=== PATIENT | male | born 1990 | race Two or more races ===

== ENCOUNTER → 2021-12-30 | Emergency (ER) | payer OTHER ==
[~2021-12-30] VITALS: Ht 170.2 cm; Wt 98.9 kg
[~2021-12-30] MED LIST: BACTRIM 400-801 EACH PO; BACTRIM DS TAB1 EACH PO
== END | disposition home or self-care (01) ==
LOC: ER 14:54
DX: L03.116 Cellulitis of left lower limb (principal)

== ENCOUNTER 2022-06-02 12:30 | Outpatient (CLI) | payer OTHER | END 2022-06-02 12:32 | disposition home or self-care (01) | LOC: RAD 12:30 | DX: S42.252A Displaced fracture of greater tuberosity of left humerus, initial encounter for closed fracture (principal) ==

== ENCOUNTER 2023-02-23 07:31 | Outpatient (CLI) | payer OTHER ==
[2023-02-23 08:44] LABS: PH,URINE 5.5 (5.0-8.0); URINE APPEARANCE Clear; URINE BILIRRUBIN Negative (NEGATIVE); URINE BLOOD Negative; URINE COLOR Yellow; URINE GLUCOSE Negative (NEGATIVE); URINE LEUKOCYTE Negative; URINE NITRATE Negative; URINE PROTEIN Negative (NEGATIVE); URINE UROBILINOGEN 0.2 E.U./dl
[2023-02-23 08:45] LABS: HEMATOCRIT 41.7 % (39.0-48.0); HEMOGLOBIN 14.8 g/dL (13-16.00); MEAN CELL VOLUME 87.3 fL (80.0-100.00); MEAN CORPUSCULAR HEMOGLOBIN 31.1 pg (27.00-32.0); MEAN CORPUSCULAR HGB CONC 35.6 g/dl (32.0-36.0); PLATELET COUNT 300 K/uL (150-450); RED BLOOD COUNT 4.77 M/uL (4.00-6.00); RED CELL DISTRIBUTION WIDTH 13.7 % (11.5-14.5)
[2023-02-23 09:32] LABS: URINE BACTERIA 0 uL (0.0-1933); URINE EPITHELIAL CELLS 1.3 uL (0.0-38.8)
[2023-02-23 09:38] LABS: ALBUMIN 3.8 gm/dL (3.4-5.0); BILIRUBIN TOTAL 0.48 mg/dL (0.3-1.2); CHOL HDL RATIO 3.8 (0-5.0); CREATININE SERUM 0.89 mg/dL (0.70-1.30); GFR 99.7; GLOBULINA 3.8 G/DL (2.4-3.5); POTASSIUM 4.36 mEq/L (3.5-5.1); TOTAL PROTEIN 7.6 gm/dL (6.4-8.2); TSH 2.71 uIU/mL (0.358-3.74)
== END 2023-02-23 07:32 | disposition home or self-care (01) ==
LOC: LAB 07:31
DX: I11.9 Hypertensive heart disease without heart failure (principal); E06.9 Thyroiditis, unspecified; E78.5 Hyperlipidemia, unspecified; E11.9 Type 2 diabetes mellitus without complications

== ENCOUNTER 2024-03-18 07:20 | Outpatient (CLI) | payer OTHER | END 2024-03-18 07:38 | disposition home or self-care (01) | LOC: SONOGRAMA 07:20 | DX: M25.511 Pain in right shoulder (principal) ==

== ENCOUNTER 2024-07-02 06:45 | Outpatient (CLI) | payer OTHER | END 2024-07-02 06:47 | disposition home or self-care (01) | LOC: RAD 06:45 | DX: R05.9 Cough, unspecified (principal); R10.2 Pelvic and perineal pain ==